=== PATIENT | female | born 1995 | race Two or more races ===

== ENCOUNTER 2016-08-23 15:58 | Outpatient (CLI) | payer MEDICAID ==
[~2016-08-23] VITALS: Ht 152.4 cm; Wt 49.1 kg
[2016-08-23 16:10] VITALS: BP 108/69
[2016-08-23] MEDS ORDERED: PREN1TAB60 PO (16:38)
== END 2016-08-23 18:50 | disposition home or self-care (01) ==
LOC: LDOP 15:58
PROVIDERS: ATTEND Obstetrics & Gynecology
DX: O46.92 Antepartum hemorrhage, unspecified, second trimester (principal); Z3A.23 23 weeks gestation of pregnancy
CPT/HCPCS: 59025; 81001; 87086; 99211; G0463